=== PATIENT | male | born 1975 | race Hispanic/Latino ===

== ENCOUNTER 2018-11-03 22:14 | Emergency (ER) | payer BC, OTHER ==
[2018-11-04 02:55] VITALS: RESP 18
--- NOTE | 2018-11-04 03:15 | ED PDOC ---
HPI: Chest Pain Time Seen by Provider: 11/04/18 02:14 Chief Complaint (Nursing): Chest Pain Chief Complaint (Provider): Chest Pain History Per: Patient History/Exam Limitations: no limitations Onset/Duration Of Symptoms: Days (x 5) Current Symptoms Are (Timing): Still Present Quality: "Pain" Additional Complaint(s): 43 year old male presents to the ED with chest pain for five days. Patient reports he was jogging with his dog when he fell onto his right side. Since then he complains of right sided chest discomfort that is worse with breathing, sneezing and coughing. He states that he is sometimes short of breath and tends to be more comfortable laying on his left side. Otherwise offers no other complaints. PMD: Dr. Adame Past Medical History Reviewed: Historical Data, Nursing Documentation, Vital Signs Vital Signs: Last Vital Signs Temp 98.6 F 11/03/18 22:30 Pulse 59 L 11/04/18 02:45 Resp 18 11/04/18 02:45 BP 123/80 11/04/18 02:45 Pulse Ox 100 11/04/18 02:45 - Medical History PMH: No Chronic Diseases - Surgical History Surgical History: No Surg Hx - Family History Family History: States: Unknown Family Hx - Social History Current smoker - smoking cessation education provided: No Alcohol: None Drugs: Denies - Home Medications Home Medications: Ambulatory Orders Medication Instructions Recorded Naproxen 375 mg PO Q8 PRN #21 tablet 07/10/18 Naproxen [Naprosyn] 500 mg PO Q12 #14 tab 11/04/18 traMADol [Ultram] 50 mg PO Q6 PRN #10 tab 11/04/18 - Allergies Allergies/Adverse Reactions: Allergies Allergy/AdvReac Type Severity Reaction Status Date / Time No Known Allergies Allergy Verified 11/03/18 22:29 Review of Systems ROS Statement: Except As Marked, All Systems Reviewed And Found Negative Constitutional: Negative for: Fever Cardiovascular: Positive for: Chest Pain (right sided ) Respiratory: Positive for: Shortness of Breath (occasionally). Negative for: Cough Gastrointestinal: Negative for: Nausea, Vomiting, Abdominal Pain Physical Exam - Reviewed Nursing Documentation Reviewed: Yes Vital Signs Reviewed: Yes - Physical Exam Appears: Positive for: No Acute Distress Head Exam: Positive for: ATRAUMATIC, NORMAL INSPECTION, NORMOCEPHALIC Skin: Positive for: Normal Color, Warm, DRY Eye Exam: Positive for: Normal appearance, EOMI, PERRL Cardiovascular/Chest: Positive for: Regular Rate, Rhythm, Other (chest wall tenderness over 4th and 5th rib in intercostal space in midclavicular line). Negative for: Chest Non Tender, Murmur Neurologic/Psych: Positive for: Alert, Oriented (x 3). Negative for: Motor/Sensory Deficits - ECG O2 Sat by Pulse Oximetry: 100 (RA) Pulse Ox Interpretation: Normal Medical Decision Making Medical Decision Makin:20 Impression: 43 year old male with chest pain in setting of mechanical injury Initial Plan: --EKG --CXR --CT Chest w/o contrast Patient was offered pain medications and declined. 03:24 CT Chest FINDINGS: Bilateral basilar subsegmental atelectatic pulmonary changes. Normal unenhanced main pulmonary artery and right and left pulmonary arteries. Normal bilateral peripheral pulmonary arteries. Normal thoracic aorta and visualized great vessels. There is no demonstrated aortic aneurysm. Normal heart and pericardium. Normal mediastinum. Normal hilar regions. Normal visualized trachea and bronchi. Normal pleura. Normal chest wall structures. Normal osseous structures. Normal visualized upper abdomen. IMPRESSION: Bilateral basilar subsegmental atelectatic pulmonary changes. 03:44 Patient is stable for discharge. Instructed by respiratory on how to use incentive spirometer. Diagnosis is rib contusion. Scribe Attestation: Documented by Irma Peñaloza acting as a scribe for Aníbal Putnam MD Provider Scribe Attestation: All medical record entries made by the Scribe were at my direction and personally dictated by me. I have reviewed the chart and agree that the record accurately reflects my personal performance of the history, physical exam, medical decision making, and the department course for this patient. I have also personally directed, reviewed, and agree with the discharge instructions and disposition. Disposition - Clinical Impression Clinical Impression: Contusion of rib on right side - Patient ED Disposition Is Patient to be Admitted: No - Disposition Disposition: Routine/Home Disposition Time: 03:44 Condition: STABLE Additional Instructions: STACIA SALAS, thank you for letting us take care of you today. Your provider was Aníbal Putnam MD and you were treated for FALL: CHEST PAIN, DIFFICULTY BREATHING. The emergency medical care you received today was directed at your acute symptoms. If you were prescribed any medication, please fill it and take as directed. It may take several days for your symptoms to resolve. Return to the Emergency Department if your symptoms worsen, do not improve, or if you have any other problems. Please contact your doctor or call one of the physicians/clinics you have been referred to that are listed on the Patient Visit Information form that is included in your discharge packet. Bring any paperwork you were given at discharge with you along with any medications you are taking to your follow up visit. Our treatment cannot replace ongoing medical care by a primary care provider outside of the emergency department. Thank you for allowing the [facility] team to be part of your care today. If you had an X-Ray or CT scan: A Radiologist will review the ED reading if any change in treatment is needed we will contact you. If you had a blood, urine, or wound culture: It will take several days for the results, if any change in treatment is needed we will contact you. If you had an STI test: It will take 48 hours for the results. Please call after 1 week if you have not heard back. Prescriptions: Naproxen [Naprosyn] 500 mg PO Q12 #14 tab traMADol [Ultram] 50 mg PO Q6 PRN #10 tab PRN Reason: chest wall pain Instructions: Contusion (DC) Forms: [employer] (Setswana)
[2018-11-04] MEDS ORDERED: Naproxen 500 MG TAB PO ONE (03:58)
[2018-11-04 04:11] VITALS: BP 128/83; PULSE 64; TEMP 97.4; O2SAT 95
--- NOTE | 2018-11-04 09:09 | CARD ---
APPROVED REPORT Date of service: 11/03/2018 EKG Measurement Heart [id number] <Conclusion> Normal sinus rhythm Incomplete right bundle branch block Borderline ECG
--- NOTE | 2018-11-04 15:38 | CT ---
Date of service: 11/04/2018 PROCEDURE: CT Chest without contrast HISTORY: Chest pain, dyspnea COMPARISON: None available. TECHNIQUE: Contiguous axial images were obtained through the chest without intravenous contrast enhancement. Sagittal and coronal reconstructions were performed. Radiation dose: Total exam DLP = 526.73 mGy-cm. This CT exam was performed using one or more of the following dose reduction techniques: Automated exposure control, adjustment of the mA and/or kV according to patient size, and/or use of iterative reconstruction technique. FINDINGS: LUNGS: Lower airway disease/bronchitis. Linear scarring lingula, left lower lobe. Similar changes right lower lobe. MEDIASTINUM: Unremarkable thoracic aorta. No aneurysm. Normal sized heart. Main pulmonary artery unremarkable. No vascular congestion. No lymphadenopathy. No aortic atherosclerotic calcification. PLEURA: No pleural fluid. No pneumothorax. BONES: No fracture. No destructive lesion. UPPER ABDOMEN: Grossly unremarkable. OTHER FINDINGS: None. IMPRESSION: No suspicious pulmonary nodules, masses or infiltrates. Linear atelectasis/scarring bilaterally not felt to be clinically consequential. Concordant results (preliminary interpretation) provided by [facility]. Procedure Completed: 02:32. Preliminary Report: Dictated and Authenticated: 03:24. Final Interpretation: 15:34. November 04, 2018
== END 2018-11-04 04:12 | disposition home or self-care (01) ==
LOC: H.ER 22:14
DX: S20.211A Contusion of right front wall of thorax, initial encounter (principal); W19.XXXA Unspecified fall, initial encounter; Y92.89 Other specified places as the place of occurrence of the external cause